=== PATIENT | male | born 1985 | race American Indian/Alaskan Native ===

== ENCOUNTER 2019-01-13 13:54 | Emergency (ER) | payer OTHER ==
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
[2019-01-13 14:42] VITALS: BP 135/96
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
[2019-01-13] MEDS ORDERED: IBUPROFEN 800 MG TAB PO ONE (16:11)
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
== END 2019-01-13 16:25 | disposition home or self-care (01) ==
LOC: ED 13:54
DX: S39.012A Strain of muscle, fascia and tendon of lower back, initial encounter (principal); V49.49XA Driver injured in collision with other motor vehicles in traffic accident, initial encounter; Y93.89 Activity, other specified; Y92.410 Unspecified street and highway as the place of occurrence of the external cause; Y99.8 Other external cause status
CPT/HCPCS: 72100